=== PATIENT | male | born 1995 | race Caucasian/White ===

== ENCOUNTER 2024-03-04 18:45 | Emergency (ER) | payer SELFPAY ==
[2024-03-04 19:16] VITALS: BP 168/102; PULSE 64; RESP 18; TEMP 36.9; O2SAT 97; BMI 26.4
--- NOTE | 2024-03-04 19:33 | ED_ITS ---
HPI - Nausea/Vomiting/Diarrhea 2 General: Chief complaint: Nausea/Vomiting/Diarrhea Stated complaint: V\D\F Time Seen by Provider: 03/04/24 18:51 Source: patient Mode of arrival: ambulatory Limitations: no limitations History of Present Illness: 28-year-old male who states that he is h aving vomiting diarrhea has been going on for 3 days. States had more vomiting than diarrhea states that he had multiple episodes and having some abdominal cramping when he vomits denies any severe abdominal pain he has no pain currently. He denies any worse improving factors had sick contacts with similar symptoms. Associated nausea: Yes Associated symtoms: Reports nausea; Denies chest pain, dysuria or headache(s) Related Data Previous Rx's Medication Instructions Recorded ondansetron 4 mg disintegrating 4 mg PO Q6H PRN nausea and 03/04/24 tablet vomiting #14 tabs Allergies Allergy/AdvReac Type Severity Reaction Status Date / Time amoxicillin Allergy ALGY-Anaphy Verified 03/04/24 19:20 laxis Penicillins Allergy ALGY-Anaphy Verified 03/04/24 19:20 laxis Review of Systems 2 Const: Denies: fever(s), chills, body aches or change in appetite ENMT: Denies: throat pain or dental pain Card: Denies: chest pain Resp: Denies: dyspnea GI: Reports: nausea, vomiting and diarrhea; Denies: abdominal pain : Denies: dysuria Musc: Denies: neck pain or back pain Skin/Breast: Denies: rash Neuro: Denies: headache(s) Physical Exam 2 Const: COMMON NORMALS: no acute distress, patient oriented x3 and healthy appearing HENMT: COMMON NORMALS: normocephalic and atraumatic HEAD & SCALP: n ormocephalic and atraumatic Eye: COMMON NORMALS: Equal, round and reactive pupils present and EOMs intact bilaterally PUPIL: Yes Equal, round and reactive pupils present Neck/C-Spine: COMMON NORMALS: full ROM and supple Chest: COMMONS NORMALS: normal inspection of the chest and normal palpation of entire chest wall Resp: COMMON NORMALS: normal respiratory effort, No retractions, No use of accessory muscles and clear to auscultation bilaterally AUSCULTATION: clear to auscultation bilaterally Cardio: COMMON NORMALS: regular rate, regular rhythm and No murmurs present (Cardio) RATE: regular rate RHYTHM: regular rhythm GI: COMMON NORMALS: Normal to inspection, nondistended, normoactive bowel sounds present, Soft to palpation, non-tender and no masses PALPATION: Yes Soft to palpation Extremity: COMMON NORMALS: normal to inspection and full ROM Neuro: COMMON NORMALS: patient oriented x3, moves all extremities and no focal motor deficits Psych: COMMON NORMALS: mental status grossly normal, Normal thought process present and cooperative THOUGHT PROCESS: Normal thought process present Skin: COMMON NORMALS: no rashes or lesions noted and no wounds GENERAL SKIN EXAM: no rashes or lesions noted Course 2 Vital Signs: Vital signs: Vital Signs Temperature 98.4 F 03/04/24 19:16 Pulse Rate 61 03/04/24 21:00 Respiratory Rate 16 03/04/24 20:00 Blood Pressure 107/82 03/04/24 21:00 Pulse Oximetry 95 03/04/24 21:00 Oxygen Delivery Me thod Room Air 03/04/24 21:00 MDM - Nausea/Vomiting/Diarrhea Medical Decision Making Patient presents here with vomiting is likely a viral GI bug exam here is benign blood work CT scan are normal he does feel improved will prescribe him Zofran he is follow-up with PCP and return if worsening Medical Records I reviewed the patient's medical records. Lab Data I reviewed the patient's lab results. 03/04/24 19:26 03/04/24 19:26 Radiology Impressions Abdomen/Pelvis CT 03/04/24 20:37 IMPRESSION: No acute abdominopelvic abnormality. Laboratory Results WBC 10.75 10^3/uL (3.29-11.43) 03/04/24 19: RBC 5.60 10^6/uL (3.85-5.65) 03/04/24 19: Hgb 16.80 g/dL (11.27-16.99) 03/04/24 19: Hct 47.0 % (37-53) 03/04/24 19: MCV 83.9 fl (82-101) 03/04/24 19: MCH 30.0 pg (27-33) 03/04/24 19: MCHC 35.7 g/dL (30-55) 03/04/24 19: RDW 11.2 % (12.1-15.1) L 03/04/24 19: Plt Count 198 10^3/cmm (157-399) 03/04/24 19: MPV 9.7 fL (7.4-10.4) 03/04/24 19: Neut % (Auto) 81.6 % 03/04/24 19: Lymph % (Auto) 13.4 % 03/04/24: [place] % (Auto) 4.1 % 03/04/24: Eos % (Auto) 0.1 % 03/04/24 19: Baso % (Auto) 0.2 % 03/04/24: Neut # (Auto) 8.78 10^3/uL (1.8-7.7) H 03/04/24: Lymph # (Auto) 1.4 10^3/uL (0.8-4.8) 03/04/24: [place] # (Auto) 0.4 10^3/uL (0.2-0.9) 03/04/24: Eos # (Auto) 0.0 10^3/uL (0.0-0.8) 03/04/24: Baso # (Auto) 0.0 10^3/uL (0.0-0.1) 03/04/24: Nucleated RBC % (auto) 0 % 03/04/24: Nucleated RBCs # 0.0 /100WBC 03/04/24 19: Sodium 134 mmol/L (136-145) L 03/04/24 19: Potassium 4.5 mmol/L (3.5-5.1) 03/04/24 19: Chloride 94 mmol/L (98-107) L 03/04/24 19: Carbon Dioxide 28 mmol/L (22-29) 03/04/24 19: Anion Gap 16.5 (5-19) 03/04/24 19: BUN 9 mg/dL (6-20) 03/04/24 19: Creatinine 0.7 mg/dL (0.7-1.2) 03/04/24 19: GFR Calculation 133.3 mL/min (90-130) H 03/04/24: Glucose 337 mg/dL (65-115) H 03/04/24 19:26 Calculated Osmolality 290 mOsm/kg (285-295) 03/04/24 19:26 Calcium 9.7 mg/dL (8.5-10.5) 03/04/24 19:26 Total Bilirubin 1.6 mg/dL (0.15-1.2) H 03/04/24 19:26 AST 17 U/L (0-40) 03/04/24 19:26 ALT 26 U/L (0-41) 03/04/24 19:26 Alkaline Phosphatase 79 U/L (40-130) 03/04/24 19:26 Total Protein 7.7 g/dL (6.6-8.7) 03/04/24 19:26 Albumin 4.7 g/dL (3.5-5.2) 03/04/24 19:26 Globulin 3.0 g/dL (1.3-4.6) 03/04/24 19:26 Lipase 39 U/L (13-60) 03/04/24 19:26 All radiology interpretation(s) finalized by discharge Discharge Plan Discharge Patient Disposition: Home Clinical Impression: Vomiting Qualifiers: Vomiting type: unspecified Nausea presence: with nausea Qualified Code(s): R 11.2 - Nausea with vomiting, unspecified Condition: Stable Prescriptions: New ondansetron 4 mg tablet,disintegrating 4 mg PO Q6H PRN (Reason: nausea and vomiting) Qty: 14 0RF Discharge Orders: Discharge ED (Routine); Ordered 03/04/24 Ordered By: Wil Anderson Discharge Diet: Advance as tolerated Discharge Activity: Use walker/crutches as instructed Patient Instructions: Acute Nausea and Vomiting (ED) Stand Alone Forms: Work/School Release Coding Level of Care Code ED Make Up Girl for Ad Fabian
[2024-03-04 19:46] LABS: Basophils % 0.2 %; Eosinophils % 0.1 %; Lymphocytes # 1.4 10^3/uL (0.8-4.8); Lymphocytes % 13.4 %; Mean Corpuscular HGB Conc 35.7 g/dL (30-55); Mean Corpuscular Volume 83.9 fl (82-101); Mean Platelet Volume 9.7 fL (7.4-10.4); Monocytes # 0.4 10^3/uL (0.2-0.9); Monocytes % 4.1 %; Neutrophils # 8.78 10^3/uL (1.8-7.7); Neutrophils % 81.6 %; Nucleated Red Blood Cells % 0 %; Platelet Count 198 10^3/cmm (157-399); Red Cell Distribution Width 11.2 % (12.1-15.1); White Blood Count 10.75 10^3/uL (3.29-11.43)
[2024-03-04] MEDS: ondansetron 2 mg/ML SDV 2 mL 4 MG IVP (19:55)
[2024-03-04] MEDS: sodium chloride 0.9% 1,000 ML 999 ML IV (19:55)
[2024-03-04] MEDS: diphenoxylate/atropine Tablet 2 TAB PO (19:56)
[2024-03-04 20:00] VITALS: BP 167/106; PULSE 59; RESP 16; O2SAT 99
[2024-03-04 20:07] LABS: Alanine Aminotransferase 26 U/L (0-41); Albumin Level 4.7 g/dL (3.5-5.2); Alkaline Phosphatase 79 U/L (40-130); Anion Gap 16.5 (5-19); Aspartate Amino Transferase 17 U/L (0-40); Blood Urea Nitrogen 9 mg/dL (6-20); Calcium 9.7 mg/dL (8.5-10.5); Carbon Dioxide 28 mmol/L (22-29); Chloride 94 mmol/L (98-107); Glomerular Filtration Rate 133.3 mL/min (90-130); Glucose 337 mg/dL (65-115); Lipase 39 U/L (13-60); Osmolality Calculated 290 mOsm/kg (285-295); Potassium 4.5 mmol/L (3.5-5.1); Sodium 134 mmol/L (136-145); Total Bilirubin 1.6 mg/dL (0.15-1.2); Total Protein 7.7 g/dL (6.6-8.7)
[2024-03-04 20:30] VITALS: BP 157/106; PULSE 62; O2SAT 100
--- NOTE | 2024-03-04 20:35 | PC.NURSE ---
po challenge attempted, pt given crackers, jello, and sprite, pt reports eating jello and then puking jello back up, stills feels nauseous with food. Dr. Anderson notified and aware.
--- NOTE | 2024-03-04 20:37 | CTR_ITS ---
PROCEDURE INFORMATION: Exam: CT Abdomen And Pelvis With Contrast Exam date and time: 03/04/2024 8:52 PM Age: 28 years old Clinical indication: Abdominal pain; Generalized; Prior surgery; Surgery date: 6+ months; Surgery type: Gb; Additional info: Janice TECHNIQUE: Imaging protocol: Computed tomography of the abdomen and pelvis with contrast. Radiation optimization: All CT scans at this facility use at least one of these dose optimization techniques: automated exposure control; mA and/or kV adjustment per patient size (includes targeted exams where dose is matched to clinical indication); or iterative reconstruction. Contrast material: OMNIPAQUE 350; Contrast volume: 100 ml; Contrast route: INTRAVENOUS (IV); COMPARISON: No relevant prior studies available. RADIATION DOSE METRICS: Total DLP (mGy-cm): 600.73 FINDINGS: Liver: Unremarkable. Gallbladder and biliary ducts: Cholecystectomy. Pancreas: Unremarkable. Spleen: Splenic granulomas. Adrenal glands: Unremarkable. Kidneys and ureters: Unremarkable. No hydronephrosis or nephrolithiasis. Stomach and bowel: No mechanical obstruction. No mucosal thickening. Appendix: Unremarkable. Intraperitoneal space: No free air or free fluid. Vasculature: Bilateral accessory renal arteries. Lymph nodes: Mild reactive mesenteric and retroperitoneal lymph nodes. Urinary bladder: Unremarkable. Reproductive: Unremarkable. Bones/joints: Bony deformity of the right posterior 11th rib and inferior pubic ramus from prior trauma. Mild spondylosis. Soft tissues: Unremarkable. CT/CT abdomen pelvis w con* [id number] IMPRESSION: No acute abdominopelvic abnormality.
[2024-03-04] MEDS: metoclopramide 5 mg/mL SDV 2 mL 10 MG IVP (20:40)
[2024-03-04] MEDS: diphenhydrAMINE 50 mg/mL SDV 1mL IVP (20:42)
[2024-03-04] MEDS: iohexol 350 mg/mL 500 mL Btl (per mL) IV (20:56)
[2024-03-04 21:00] VITALS: BP 107/82; PULSE 61; O2SAT 95
[2024-03-04 21:36] VITALS: BP 107/82; PULSE 65; O2SAT 97
== END 2024-03-04 21:37 | disposition home or self-care (01) ==
PROVIDERS: Emergency Provider Emergency Medicine
DX: R11.2 Nausea with vomiting, unspecified (principal)
CPT/HCPCS: 74177; 80053; 83690; 85025; 96361; 96374; 96375; 99285; J1200; J2405; J2765; J7030

== ENCOUNTER 2024-03-20 17:08 | Emergency (ER) | payer SELFPAY ==
[2024-03-20 17:20] VITALS: BP 164/111; PULSE 102; RESP 18; TEMP 36.5; O2SAT 95; BMI 26.4
== END 2024-03-20 18:51 | disposition left against medical advice (07) ==
PROVIDERS: Emergency Provider Family Medicine
DX: Z53.21 Procedure and treatment not carried out due to patient leaving prior to being seen by health care provider (principal)

== ENCOUNTER 2024-08-06 11:06 | Emergency (ER) | payer BC, MEDICAID, SELFPAY ==
[2024-08-06 11:41] VITALS: BP 140/108; PULSE 101; RESP 16; TEMP 36.3; O2SAT 95; BMI 22.8
[2024-08-06 11:46] LABS: Basophils # 0.1 10^3/uL (0.0-0.1); Basophils % 0.3 %; Eosinophils % 0.1 %; Hematocrit 50.8 % (37-53); Lymphocytes # 1.6 10^3/uL (0.8-4.8); Lymphocytes % 10.6 %; Mean Corpuscular HGB Conc 36.4 g/dL (30-55); Mean Corpuscular Volume 82.3 fl (82-101); Mean Platelet Volume 9.4 fL (7.4-10.4); Monocytes # 0.7 10^3/uL (0.2-0.9); Monocytes % 4.4 %; Neutrophils # 12.86 10^3/uL (1.8-7.7); Neutrophils % 83.9 %; Nucleated Red Blood Cells % 0 %; Platelet Count 342 10^3/cmm (157-399); Red Blood Count 6.17 10^6/uL (3.85-5.65); Red Cell Distribution Width 11.6 % (12.1-15.1); White Blood Count 15.32 10^3/uL (3.29-11.43)
[2024-08-06 11:49] LABS: Glucose Point of Care 382 mg/dL (70-110)
[2024-08-06 12:05] LABS: Alanine Aminotransferase 23 U/L (0-41); Alkaline Phosphatase 89 U/L (40-130); Anion Gap 22.6 (5-19); Aspartate Amino Transferase 14 U/L (0-40); Blood Urea Nitrogen 13 mg/dL (6-20); Calcium 10.7 mg/dL (8.5-10.5); Carbon Dioxide 25 mmol/L (22-29); Chloride 84 mmol/L (98-107); Creatinine Clr Calc Pharmacy 130.8416; Globulin 3.6 g/dL (1.3-4.6); Glomerular Filtration Rate 99.1 mL/min (90-130); Glucose 383 mg/dL (65-115); Lipase 31 U/L (13-60); Osmolality Calculated 280 mOsm/kg (285-295); Potassium 4.6 mmol/L (3.5-5.1); Sodium 127 mmol/L (136-145); Total Bilirubin 3.1 mg/dL (0.15-1.2); Total Protein 8.6 g/dL (6.6-8.7)
--- NOTE | 2024-08-06 12:20 | XR_ITS ---
WS: [id number] Exam: XR chest 1V portable [id number] Date/Time of Exam: 08/06/2024 12:20 PM Reason For Exam: sob No priors. Lungs are fully expanded and clear. Normal cardiomediastinal silhouette. No pleural effusions. Mild levoscoliosis of the T-spine. Partially visualized hardware in the proximal RIGHT humerus. XR/XR chest 1V portable [id number] IMPRESSION: 1. No acute cardiopulmonary finding.
--- NOTE | 2024-08-06 12:20 | W.ED.NAVMDI ---
HPI - Nausea/Vomiting/Diarrhea General: Chief complaint: Nausea/Vomiting/Diarrhea Stated complaint: n/v/d/f for 2 weeks, pt is diabetic Time Seen by Provider: 08/06/24 12:17 Source: patient Mode of arrival: ambulatory Limitations: no limitations History of Present Illness: 29-year-old male is a type I diabetic states that he has been having vomiting over the last 2 weeks states not been able to hold much liquid down. States he been having some fatigue and bodyaches he is concerned he might be going into DKA. He denies any fevers. Denies any dysuria Associated nausea: Yes Associated symtoms: Reports fatigue and nausea; Denies chest pain, dysuria or headache(s) Related Data Home Medications ?Medication ?Instructions ?Recorded ?Confirmed lamotrigine 200 mg tablet 200 mg PO DAILY 08/06/24 08/06/24 (Lamictal) Previous Rx's ?Medication ?Instructions ?Recorded ondansetron 4 mg disintegrating 4 mg PO Q6H PRN nausea and 03/04/24 tablet vomiting #14 tabs metoclopramide HCl 10 mg tablet 10 mg PO Q6H PRN nausea and 08/06/24 (Reglan) vomiting #20 tabs Allergies Allergy/AdvReac Type Severity Reaction Status Date / Time amoxicillin Allergy ALGY-Anaphy Verified 08/06/24 11:43 laxis Penicillins Allergy ALGY-Anaphy Verified 08/06/24 11:43 laxis Review of Systems Const: Reports: fatigue; Denies: fever(s), chills, body aches or change in appetite ENMT: Denies: throat pain or dental pain Card: Denies: chest pain Resp: Denies: dyspnea GI: Reports: nausea and vomiting; Denies: abdominal pain or diarrhea : Denies: dysuria Musc: Denies: neck pain or back pain Skin/Breast: Denies: rash Neuro: Denies: headache(s) Physical Exam Const: COMMON NORMALS: no acute distress, patient oriented x3 and healthy appearing HENMT: COMMON NORMALS: normocephalic and atraumatic HEAD & SCALP: normocephalic and atraumatic Eye: COMMON NORMALS: conjunctivae normal CONJUNCTIVA: Yes conjunctivae normal Neck/C-Spine: COMMON NORMALS: full ROM and supple Chest: COMMONS NORMALS: normal inspection of the chest Resp: COMMON NORMALS: normal respiratory effort, No retractions, No use of accessory muscles and clear to auscultation bilaterally AUSCULTATION: clear to auscultation bilaterally Cardio: COMMON NORMALS: regular rate, regular rhythm and No murmurs present (Cardio) RATE: regular rate RHYTHM: regular rhythm GI: COMMON NORMALS: Normal to inspection, nondistended, normoactive bowel sounds present, Soft to palpation, non-tender and no masses PALPATION: Yes Soft to palpation Extremity: COMMON NORMALS: normal to inspection and full ROM Neuro: COMMON NORMALS: patient oriented x3, moves all extremities and no focal motor deficits Psych: COMMON NORMALS: mental status grossly normal, Normal thought process present and cooperative THOUGHT PROCESS: Normal thought process present Skin: COMMON NORMALS: no rashes or lesions noted and no wounds GENERAL SKIN EXAM: no rashes or lesions noted Course Vital Signs: Vital signs: Vital Signs Temperature 97.4 F L 08/06/24 11:41 Pulse Rate 80 08/06/24 13:46 Respiratory Rate 16 08/06/24 11:41 Blood Pressure 169/118 08/06/24 13:46 Pulse Oximetry 100 08/06/24 13:46 Oxygen Delivery Me thod Room Air 08/06/24 13:46 MDM - Nausea/Vomiting/Diarrhea Medical Decision Making Patient presents here with vomiting he is not DKA feels much improved here after Reglan and fluids his glucose is improved he stable for discharge we will prescribe him Reglan for home follow-up PCP return if worsening. Medical Records I reviewed the patient's medical records. Lab Data I reviewed the patient's lab results. 08/06/24 11:38 08/06/24 11:38 Radiology Impressions Chest X-Ray 08/06/24 12:20 IMPRESSION: 1. No acute cardiopulmonary finding. Laboratory Results WBC 15.32 10^3/uL (3.29-11.43) H 08/06/24 11:38 RBC 6.17 10^6/uL (3.85-5.65) H 08/06/24 11:38 Hgb 18.50 g/dL (11.27-16.99) H 08/06/24 11:38 Hct 50.8 % (37-53) 08/06/24 11:38 MCV 82.3 fl (82-101) 08/06/24 11:38 MCH 30.0 pg (27-33) 08/06/24 11:38 MCHC 36.4 g/dL (30-55) 08/06/24 11:38 RDW 11.6 % (12.1-15.1) L 08/06/24 11:38 Plt Count 342 10^3/cmm (157-399) 08/06/24 11:38 MPV 9.4 fL (7.4-10.4) 08/06/24 11:38 Neut % (Auto) 83.9 % 08/06/24 11:38 Lymph % (Auto) 10.6 % 08/06/24 11:38 [place] % (Auto) 4.4 % 08/06/24 11:38 Eos % (Auto) 0.1 % 08/06/24 11:38 Baso % (Auto) 0.3 % 08/06/24 11:38 Neut # (Auto) 12.86 10^3/uL (1.8-7.7) H 08/06/24 11:38 Lymph # (Auto) 1.6 10^3/uL (0.8-4.8) 08/06/24 11:38 [place] # (Auto) 0.7 10^3/uL (0.2-0.9) 08/06/24 11:38 Eos # (Auto) 0.0 10^3/uL (0.0-0.8) 08/06/24 11:38 Baso # (Auto) 0.1 10^3/uL (0.0-0.1) 08/06/24 11:38 Nucleated RBC % (auto) 0 % 08/06/24 11:38 Nucleated RBCs # 0.0 /100WBC 08/06/24 11:38 Specimen Type Arterial 08/06/24 13:41 Sample Site Brachial, right 08/06/24 13:41 ABG pH 7.44 (7.35-7.45) 08/06/24 13:41 ABG pCO2 30.7 mmHg (35-45) L 08/06/24 13:41 ABG pO2 111.0 mmHg (80.0-100.0) H 08/06/24 13:41 ABG PO2/FiO2 Ratio 528 08/06/24 13:41 ABG HCO3 20.9 mmol/L (22-26) L 08/06/24 13:41 ABG Base Excess -1.9 mmol/L (-2.0-2.0) 08/06/24 13:41 [place] Test Pos 08/06/24 13:41 Hematocrit 53.1 % (42-52) H 08/06/24 13:41 O2 Delivery Device Room air 08/06/24 13:41 FiO2 21.0 % 08/06/24 13:41 Box Car Checker ID [place] 08/06/24 13:41 Sodium 127 mmol/L (136-145) L 08/06/24 11:38 Potassium 4.6 mmol/L (3.5-5.1) 08/06/24 11:38 Chloride 84 mmol/L (98-107) L 08/06/24 11:38 Carbon Dioxide 25 mmol/L (22-29) 08/06/24 11:38 Anion Gap 22.6 (5-19) H 08/06/24 11:38 BUN 13 mg/dL (6-20) 08/06/24 11:38 Creatinine 0.9 mg/dL (0.7-1.2) 08/06/24 11:38 GFR Calculation 99.1 mL/min (90-130) 08/06/24 11:38 Glucose 383 mg/dL (65-115) H 08/06/24 11:38 POC Glucose 283 mg/dL (70-110) H 08/06/24 14:25 Calculated Osmolality 280 mOsm/kg (285-295) L 08/06/24 11:38 Calcium 10.7 mg/dL (8.5-10.5) H 08/06/24 11:38 Total Bilirubin 3.1 mg/dL (0.15-1.2) H 08/06/24 11:38 AST 14 U/L (0-40) 08/06/24 11:38 ALT 23 U/L (0-41) 08/06/24 11:38 Alkaline Phosphatase 89 U/L (40-130) 08/06/24 11:38 Total Protein 8.6 g/dL (6.6-8.7) 08/06/24 11:38 Albumin 5.0 g/dL (3.5-5.2) 08/06/24 11:38 Globulin 3.6 g/dL (1.3-4.6) 08/06/24 11:38 Lipase 31 U/L (13-60) 08/06/24 11:38 Urine Color Yellow (Yellow) 08/06/24 13:04 Urine Appearance Clear (CLEAR) 08/06/24 13:04 Urine pH 5.0 (5-7) 08/06/24 13:04 Ur Specific [place] 1.043 (1.005-1.030) H 08/06/24 13:04 Urine Protein Trace (Negative) A 08/06/24 13:04 Urine Glucose (UA) 3+ (Normal) H 08/06/24 13:04 Urine Ketones 3+ (Negative) H 08/06/24 13:04 Urine Blood Negative (Negative) 08/06/24 13:04 Urine Nitrate Negative (Negative) 08/06/24 13:04 Urine Bilirubin Negative (Negative) 08/06/24 13:04 Urine Urobilinogen 0.2 mg/dL (Negative) 08/06/24 13:04 Ur Leukocyte Esterase Negative (Negative) 08/06/24 13:04 Urine RBC 0-2 /hpf (0-2) 08/06/24 13:04 Urine WBC 0-5 /hpf (0-5) 08/06/24 13:04 Ur Squamous Epith Cells 0-5 /hpf (0-5) 08/06/24 13:04 Amorphous Sediment Not Reportable 08/06/24 13:04 Urine Bacteria None seen /hpf (NONE) 08/06/24 13:04 Hyaline Casts 2.05 /lpf 08/06/24 13:04 No radiology studies performed this visit Discharge Plan Discharge Patient Disposition: Home Clinical Impression: Vomiting Condition: Stable Prescriptions: New metoclopramide HCl [Reglan] 10 mg tablet 10 mg PO Q6H PRN (Reason: nausea and vomiting) Qty: 20 0RF No Action ondansetron 4 mg tablet,disintegrating 4 mg PO Q6H PRN (Reason: nausea and vomiting) Qty: 14 0RF lamotrigine [Lamictal] 200 mg Tablet 200 mg PO DAILY Discharge Orders: Discharge ED (Routine); Ordered 08/06/24 Ordered By: Wil Anderson Referrals: May Meadwos MD [Physician, Endocrinology] - 4-7 days Discharge Diet: Advance as tolerated Discharge Activity: Resume usual activity Patient Instructions: Acute Nausea and Vomiting (ED) Print Language: [place] Coding Level of Care Code ED Pattern Attendant for Ad Fabian
[2024-08-06] MEDS: sodium chloride 0.9% 1,000 ML 999 ML IV ×2 (12:42→13:19)
[2024-08-06 12:45] VITALS: BP 145/113; PULSE 92; O2SAT 97
--- NOTE | 2024-08-06 13:08 | PC.PHAR ---
Pt states he takes Lamictal 200mg daily and lactulose and levemir insulin. The only medications found are Lamictal 200mg daily 03/12/24 30ds at [facility] in [place]. No insulin or lactulose on file there or at [facility]. Zofran 4mg odt was prescribed in February by Dr Anderson.
[2024-08-06 13:12] LABS: Bilirubin Urine Negative (Negative); Blood Urine Negative (Negative); Glucose Urine UA 3+ (Normal); Ketones Urine 3+ (Negative); Leukocyte Esterase Urine Negative (Negative); Nitrate Urine Negative (Negative); Protein Urine Trace (Negative); Urine Appearance Clear (CLEAR); Urine Color Yellow (Yellow); Urobilinogen Urine 0.2 mg/dL (Negative)
[2024-08-06 13:15] LABS: Add Urine Microscopic? YES; Bacteria Urine None Seen /hpf; Hyaline Casts Urine 2.05 /lpf; RBC Urine 0-2 /hpf (0-2); Squamous Epithelial Cell Urine 0-5 /hpf (0-5); WBC Urine 0-5 /hpf (0-5)
[2024-08-06 13:16] LABS: Specific Gravity, Urine 1.043 (1.005-1.030)
[2024-08-06 13:17] LABS: Add Urine Culture? No
[2024-08-06] MEDS: metoclopramide 5 mg/mL SDV 2 mL 10 MG IVP (13:21)
[2024-08-06] MEDS: diphenhydrAMINE 50 mg/mL SDV 1mL IVP (13:21)
[2024-08-06 13:23] VITALS: BP 145/118; PULSE 69; O2SAT 100
[2024-08-06 13:46] VITALS: BP 169/118; PULSE 80; O2SAT 100
[2024-08-06 13:52] LABS: ABG PCO2 30.7 mmHg (35-45); ABG PH Result 7.44 (7.35-7.45); Arterial Blood Gas Hematocrit 53.1 % (42-52); Base Excess ABG -1.9 mmol/L (-2.0-2.0); Blood Gas Allen Test Pos; Blood Gas Sample Type Arterial; HCO3 ABG 20.9 mmol/L (22-26)
[2024-08-06 13:53] LABS: Blood Gas Operator Identificat MONRO; Blood Gas Sample Site Brachial, right; Oxygen Device ROOM AIR; PO2 FiO2 Ratio Arterial Blood 528
[2024-08-06 14:28] LABS: Glucose Point of Care 283 mg/dL (70-110)
[2024-08-06 14:42] VITALS: BP 167/103; PULSE 76; O2SAT 100
--- NOTE | 2024-08-08 08:32 | DCPLANNER ---
messaged endo for er f/u
== END 2024-08-06 14:43 | disposition home or self-care (01) ==
PROVIDERS: Emergency Provider Emergency Medicine
DX: R11.10 Vomiting, unspecified (principal)
CPT/HCPCS: 36415; 36416; 36600; 71045; 80053; 81001; 82803; 82962; 83690; 85025; 96361; 96374; 96375; 99284; J1200; J2765; J7030

== ENCOUNTER → 2024-09-08 10:20 | Outpatient (BNVA) | payer BC, MEDICAID, SELFPAY | PROVIDERS: Visit Provider Internal Medicine | DX: E10.9 Type 1 diabetes mellitus without complications (principal); R11.2 Nausea with vomiting, unspecified; Z09 Encounter for follow-up examination after completed treatment for conditions other than malignant neoplasm | CPT/HCPCS: 80053; 80061; 82044; 82947; 83036; 84681; 86337; 86341 ==